=== PATIENT | female | born 1975 | race Two or more races ===

== ENCOUNTER 2019-09-04 17:38 | Emergency (ER) | payer MEDICAID, OTHER ==
[~2019-09-04] VITALS: Ht 165.1 cm; Wt 66.7 kg
[2019-09-04 18:05] VITALS: BP 117/67
== END 2019-09-04 19:47 | disposition home or self-care (01) ==
LOC: ER 17:38
DX: J06.9 Acute upper respiratory infection, unspecified (principal)
CPT/HCPCS: 71046

== ENCOUNTER → 2020-05-01 | Emergency (ER) | payer MEDICAID ==
[~2020-05-01] MED LIST: SODIUM CHLORIDE 0.9% 1,000 ML IV ONE; diphenhdrAMINE HCL 50 MG/1 ML VL IV ONE; methylPREDNISolone SOD SUCC 125 MG/2 ML VL IV ONE
[2020-05-01 20:16] VITALS: BP 104/70
== END | disposition home or self-care (01) ==
LOC: ER 16:46
DX: T78.40XA Allergy, unspecified, initial encounter (principal); X58.XXXA Exposure to other specified factors, initial encounter
CPT/HCPCS: 96361; 96374; 96375; 99284; J1200; J2930; J7030

== ENCOUNTER 2020-05-02 10:57 | Emergency (ER) | payer MEDICAID ==
[~2020-05-02] VITALS: Ht 157.5 cm; Wt 68.9 kg
[2020-05-02 11:17] VITALS: BP 124/72
[2020-05-02] MEDS ORDERED: diphenhdrAMINE HCL 50 MG/1 ML VL IM ONE (11:45)
[2020-05-02] MEDS ORDERED: EPINEPHrine HCL 1 MG/1 ML AMP IM ONE (11:45)
== END 2020-05-02 12:20 | disposition home or self-care (01) ==
LOC: ER 10:57
DX: T78.40XD Allergy, unspecified, subsequent encounter (principal); E11.9 Type 2 diabetes mellitus without complications; E78.5 Hyperlipidemia, unspecified; I10 Essential (primary) hypertension; X58.XXXA Exposure to other specified factors, initial encounter
CPT/HCPCS: 96372; 99284; J0171; J1200

== ENCOUNTER 2020-08-10 20:44 | Emergency (ER) | payer MEDICAID | END 2020-08-10 20:45 | disposition left against medical advice (07) | LOC: ER 20:45 | DX: R51.9 Headache, unspecified (principal); R43.9 Unspecified disturbances of smell and taste; Z53.21 Procedure and treatment not carried out due to patient leaving prior to being seen by health care provider ==